=== PATIENT | female | born 1990 | race Caucasian/White ===

== ENCOUNTER 2016-12-23 21:05 | Emergency (ER) | payer MEDICAID ==
[~2016-12-23] VITALS: Ht 162.6 cm; Wt 70.0 kg
[2016-12-23 21:09] VITALS: BP 113/43; TEMP 97.5
[2016-12-23 23:27] VITALS: PULSE 80
== END 2016-12-23 23:27 | disposition home or self-care (01) ==
LOC: COL.ER 21:05
DX: R07.89 Other chest pain (principal); R05 Cough

== ENCOUNTER 2017-06-19 06:54 | Inpatient (IN) | payer MEDICAID ==
[2017-06-19] VITALS (13 sets, daily range): BP systolic 98–125; BP diastolic 39–76; PULSE 61–116; TEMP 97.7–98.3
[~2017-06-19] VITALS: Ht 162.6 cm; Wt 70.5 kg
[2017-06-19] MEDS ORDERED: PRENATAL1 TA7 PO (07:26)
[2017-06-19 07:39] LABS: BASO # 0.1 (0.0-0.2); BASO % 0.5 % (0.0-2.0); EOS # 0.3 (0.0-0.7); EOS % 2.8 % (0-4.0); GRAN # 7.5 (1.4-6.5); GRAN % 67.7 % (42.2-75.2); HEMOGLOBIN 12.3 g/dl (12.5-16.0); LYMPH # 2.3 (1.2-3.4); LYMPH % 20.9 % (20.0-51.0); MEAN CELL VOLUME 86 fl (80.0-100.0); MEAN CORPUSCULAR HEMOGLOBIN 29 pg (27.0-31.0); MEAN CORPUSCULAR HGB CONC 34 g/dl (33.0-37.0); MEAN PLATELET VOLUME 11.1 fl (7.4-10.4); MONO # 0.9 (0.1-0.6); MONO % 7.7 % (1.7-9.3); PLATELET COUNT 247 K/mm3 (130-400); RED BLOOD COUNT 4.22 M/mm3 (4.10-5.30); REDCELL DISTRIBUTION WIDTH-CV 14.4 % (11.5-14.5); WHITE BLOOD COUNT 11.1 K/mm3 (4.8-10.8)
[2017-06-19 07:40] LABS: HEMATOCRIT 36.4 % (37.0-47.0)
[2017-06-19 10:05] LABS: AMPHETAMINE URINE NEGATIVE; BARBITURATES URINE NEGATIVE; BENZODIAZEPINES URINE NEGATIVE; BUPRENORPHINE URINE NEGATIVE; METHADONE URINE NEGATIVE; OPIATES URINE NEGATIVE; OXYCODONE URINE NEGATIVE; PHENCYCLIDINE URINE NEGATIVE; PROPOXYPHENE URINE NEGATIVE; THC CANNABINOIDS URINE NEGATIVE
[2017-06-20 06:12] LABS: HEMATOCRIT 35.5 % (37.0-47.0); HEMOGLOBIN 11.6 g/dl (12.5-16.0)
[2017-06-20 09:00] VITALS: BP 104/59; PULSE 72; TEMP 97.3
[2017-06-20] MEDS ORDERED: IBU600 MG PO (10:54)
[2017-06-20] MEDS ORDERED: PRENATAL MVI PO (10:55)
[2017-06-20] MEDS ORDERED: BREASTPUMP MC (10:55)
== END 2017-06-20 12:50 | disposition home or self-care (01) | DRG 775 ==
LOC: LDRO 06:54 → LDR 07:08 → OB 10:52
PROVIDERS: Obstetrics & Gynecology
PROC: 10E0XZZ Delivery of Products of Conception, External Approach (ICD-10-PCS; principal; 2017-06-19)
DX: O60.13X0 Preterm labor second trimester with preterm delivery third trimester, not applicable or unspecified (principal); Z3A.36 36 weeks gestation of pregnancy; Z37.0 Single live birth
CPT/HCPCS: J2590; J7120

== ENCOUNTER 2018-09-07 11:05 | Emergency (ER) | payer SELFPAY ==
[~2018-09-07] VITALS: Ht 162.6 cm; Wt 75.7 kg
[~2018-09-07 11:05] MED LIST: BREASTPUMP MC; IBU600 MG PO; PRENATAL MVI PO; PRENATAL1 TA7 PO
[2018-09-07 12:34] VITALS: BP 122/64; PULSE 84; TEMP 97.7
== END 2018-09-07 12:34 | disposition home or self-care (01) ==
LOC: COL.ER 11:05
DX: S50.01XA Contusion of right elbow, initial encounter (principal); W19.XXXA Unspecified fall, initial encounter; Y92.481 Parking lot as the place of occurrence of the external cause